=== PATIENT | female | born 1950 | race Caucasian/White ===

== ENCOUNTER 2022-05-20 14:33 | Emergency (ER) | payer MEDICARE, OTHER | END 2022-05-20 15:08 | disposition home or self-care (01) | LOC: CC.ED 14:33 | DX: S42.442A Displaced fracture (avulsion) of medial epicondyle of left humerus, initial encounter for closed fracture (principal); W01.0XXA Fall on same level from slipping, tripping and stumbling without subsequent striking against object, initial encounter | CPT/HCPCS: 73080-LT; 99283 ==